=== PATIENT | female | born 1940 | race African-American/Black ===

== ENCOUNTER 2021-08-20 12:29 | Outpatient (CLI) | payer MEDICARE | END 2021-08-20 12:30 | disposition home or self-care (01) | LOC: CSHRAD 12:29 | PROVIDERS: ATTEND Family Medicine | DX: R60.9 Edema, unspecified (principal); R91.8 Other nonspecific abnormal finding of lung field | CPT/HCPCS: 71046 ==

== ENCOUNTER 2021-09-07 14:10 | Outpatient (CLI) | payer MEDICARE | END 2021-09-07 14:11 | disposition home or self-care (01) | LOC: CSHWCC 14:10 | PROVIDERS: ATTEND Nurse Practitioner Family | DX: S81.802D Unspecified open wound, left lower leg, subsequent encounter (principal); S81.801D Unspecified open wound, right lower leg, subsequent encounter | CPT/HCPCS: 97139; G0463; 99205 ==

== ENCOUNTER 2021-09-10 09:29 | Outpatient (CLI) | payer MEDICARE | END 2021-09-10 09:30 | disposition home or self-care (01) | LOC: CSHWCC 09:29 | PROVIDERS: ATTEND Nurse Practitioner Family | DX: L97.812 Non-pressure chronic ulcer of other part of right lower leg with fat layer exposed (principal); S81.801D Unspecified open wound, right lower leg, subsequent encounter; S81.802D Unspecified open wound, left lower leg, subsequent encounter; R60.0 Localized edema | CPT/HCPCS: 29581; 97139; G0463; 99213 ==

== ENCOUNTER 2021-09-14 14:44 | Outpatient (CLI) | payer MEDICARE | END 2021-09-14 14:45 | disposition home or self-care (01) | LOC: CSHWCC 14:44 | PROVIDERS: ATTEND Nurse Practitioner Family | DX: L97.812 Non-pressure chronic ulcer of other part of right lower leg with fat layer exposed (principal); S81.801D Unspecified open wound, right lower leg, subsequent encounter; S81.802D Unspecified open wound, left lower leg, subsequent encounter; R60.0 Localized edema | CPT/HCPCS: 29581; 97139; G0463; 99213 ==